=== PATIENT | female | born 1940 | race Caucasian/White ===

== ENCOUNTER 2021-11-13 16:01 | Emergency (ER) | payer MEDICARE, BC ==
[~2021-11-13] VITALS: Ht 157.5 cm; Wt 86.2 kg
[2021-11-13] MEDS ORDERED: METO-356 PO (16:36)
[2021-11-13] MEDS ORDERED: ROSU10TA2 PO (16:36)
[2021-11-13] MEDS ORDERED: CLOP75TA15 PO (16:36)
[2021-11-13 17:34] LABS: HEMATOCRIT 38.9 % (31.2-41.9); MEAN CORPUSCULAR HEMOGLOBIN 29.6 uug (24.7-32.8); MEAN CORPUSCULAR VOLUME 87.5 fL (75.5-95.3); PLATELET COUNT (AUTO) 277 K/uL (179-408)
[2021-11-13 17:35] LABS: CARBON DIOXIDE 28 mmol/L (21-32); CHLORIDE 104 mmol/L (98-107); CREATININE 1.1 mg/dL (0.6-1.3); GLUCOSE 95 mg/dL (74-106); POTASSIUM 4.5 mmol/L (3.5-5.1); UREA NITROGEN, BLOOD 20 mg/dL (7-18)
[2021-11-13 19:34] VITALS: BP 158/80
--- NOTE | 2021-11-13 19:34 | NUR ---
Patient discharged to home in stable condition. Written and verbal after care instructions given. Patient verbalizes understanding of instructions. Stressed follow up or return to ER for worsening s/s. Patient out of ER with steady gait, no acute signs of distress, VSS, all belongings taken, provided copies of lab and imaging results.
== END 2021-11-13 19:34 | disposition home or self-care (01) ==
LOC: ER 16:01
DX: S20.211A Contusion of right front wall of thorax, initial encounter (principal); S50.12XA Contusion of left forearm, initial encounter; V49.50XA Passenger injured in collision with unspecified motor vehicles in traffic accident, initial encounter; Y92.410 Unspecified street and highway as the place of occurrence of the external cause; Z95.5 Presence of coronary angioplasty implant and graft; Z79.02 Long term (current) use of antithrombotics/antiplatelets; Z79.899 Other long term (current) drug therapy; R03.0 Elevated blood-pressure reading, without diagnosis of hypertension; Z90.49 Acquired absence of other specified parts of digestive tract; I49.1 Atrial premature depolarization
CPT/HCPCS: 36415; 71250; 73090; 84484; 85025; 93005; A4663